=== PATIENT | female | born 1980 | race African-American/Black ===

== ENCOUNTER 2017-10-06 10:11 | Emergency (ER) | payer OTHER ==
[2017-10-06] MEDS: LIDOCAINE 1% (MDV) 10 ML INJ INFIL (11:01)
[2017-10-06] MEDS: TRIMETHOPRIM/SULFAMETHOX (DS) TAB PO (11:01)
[2017-10-06] MEDS: DIPHTH/TET/ACEL PERTUSS (ADULT) 0.5 ML VIAL IM* (11:07)
[2017-10-06] MEDS: HYDROCODONE/APAP (5/325) TAB PO (11:17)
[2017-10-06] MEDS: IBUPROFEN 600 MG TAB PO (11:19)
== END 2017-10-06 13:13 | disposition home or self-care (01) ==
LOC: FTE 10:11
DX: L73.9 Follicular disorder, unspecified (principal); L02.612 Cutaneous abscess of left foot; F17.210 Nicotine dependence, cigarettes, uncomplicated; Z23 Encounter for immunization
CPT/HCPCS: 10060; 73630-LT; 90471; 90715; 99284-25

== ENCOUNTER 2018-06-15 03:53 | Emergency (ER) | payer OTHER ==
[2018-06-15] MEDS: CEFTRIAXONE 250 MG INJ IM (04:23)
[2018-06-15] MEDS: AZITHROMYCIN 250 MG TAB PO (04:23)
== END 2018-06-15 04:32 | disposition home or self-care (01) ==
LOC: FTE 03:53
DX: N76.0 Acute vaginitis (principal); F17.210 Nicotine dependence, cigarettes, uncomplicated; Z20.2 Contact with and (suspected) exposure to infections with a predominantly sexual mode of transmission
CPT/HCPCS: 96372; 99284-25